=== PATIENT | female | born 1950 | race Caucasian/White ===

== ENCOUNTER 2018-08-08 07:00 | Inpatient (IN) ==
--- NOTE | 2018-08-21 17:46 | MH ---
cc: Reagan Main MD DATE OF ADMISSION: 08/22/2018 She is scheduled to be admitted to the hospital on 08/22/2018. ADMITTING DIAGNOSIS: Osteoarthritis, left shoulder. HISTORY OF PRESENT ILLNESS: The patient is a 67-year-old white female who has experienced a 2-1/2 year history of pain involving her left shoulder area. She had noted the gradual onset of discomfort unrelated to injury or unusual activity. She had undergone previous evaluation with her primary care physician who recommended that she conform to exercise activities during which time, the patient remained symptomatic with limited mobility about her shoulder and then thereafter initiated a course of massage therapy that did not afford her any appreciable benefit. She was taking ibuprofen with limited benefit and relief of her pain and subsequently presented to the office in 05/2017. At that time, her x-ray studies revealed obvious degenerative changes of her glenohumeral joint with hypertrophic bony reaction along the inferior margins of the humeral head and glenoid with preservation of the subacromial space. Findings and treatment options were reviewed. At that time, the patient elected to continue with conservative management and thereafter being followed on an outpatient basis. She returned to the office in September of this past year reporting that she was becoming progressively more symptomatic with pain with limited mobility that had begun to influence all activities of daily living. She has been taking ibuprofen 800 mg routinely for pain management. At that time, it was recommended that she proceed with a CT scan evaluation, the results of which identified mild to moderate acromioclavicular and moderate glenohumeral joint osteoarthritis with synovial debris within the glenohumeral joint. There was a 17 x 16 mm 30 % partial thickness articular surface tear of the supraspinatus tendon. The patient returned to the office in followup disposition and at that time, the findings of the CT scan were reviewed and treatment options discussed. The pros and cons of continuing with conservative management versus operative intervention that would involve reverse shoulder arthroplasty were outlined in detail. Emphasis was made regarding the fact that the decision to proceed with surgery would be left entirely to the patient's discretion. The patient considered her options in this regard and subsequently returned to the office in followup disposition, expressing her desire to proceed accordingly and in compliance with her wishes, she is currently being admitted in order that the above be accomplished. PAST MEDICAL HISTORY, HOSPITALIZATIONS AND SURGERIES: Right total knee arthroplasty, colonoscopy, correction of a deviated nasal septum, vein stripping of the right leg, bladder suspension, excision of vaginal cyst and partial right upper lobectomy for history of cancer followed by a course of chemotherapy. The patient's medical illnesses include a history of hypertension. The patient was recently evaluated for sleep apnea. MEDICATIONS: She is currently takin. Sertraline 50 mg daily. 2. She also takes vitamin C, B complex. 3. Calcium. 4. Turmeric. 5. Biotin. 6. Multivitamin tablet. 7. Recently started probiotic. ALLERGIES: SHE DENIES ANY KNOWN DRUG ALLERGIES. REVIEW OF SYSTEMS: She wears glasses, has occasional headaches as related to neck discomfort. No seizure or syncope. No sinus congestion or epistaxis. Auditory acuity slightly diminished. No tinnitus. No bleeding gums or dysphagia. No cough, pneumonia, or tuberculosis. No angina or heart disease, medically managed for hypertension. Appetite good. Bowel movements regular. No hepatitis, gallbladder disease or ulcers. She has had a history of hemorrhoids. No urinary tract infection, no kidney stones. No fractures. No psychiatric illness. Remaining review of systems is unremarkable and noncontributory. FAMILY HISTORY: 47 years, is 71 years of age in reasonably good health, 1 son and 1 daughter described as being in good health. FAMILY HISTORY: Positive for heart disease, liposarcoma, diabetes and COPD. SOCIAL HISTORY: The patient is employed as a computer analyst supervisor. She completed 2 years of college education. Denies active use of tobacco. Ethanol consumption in the form of several beers on a daily basis. PHYSICAL EXAMINATION: VITAL SIGNS: Height 5 feet 3 inches, weight 206 pounds. GENERAL: An alert, oriented, and responsive 67-year-old white female who sits quietly upon the examination table with no apparent distress. HEAD, EARS, EYES, NOSE AND THROAT: Pupils are equal, round and reactive to light. Extraocular movements full. Sclerae are clear. External nares clear. External auditory canals clear. Semi edentulous in the mandibular distribution. Mucous membranes pink and moist. Pharynx clear. NECK: Supple. Active mobility with slight guarding at the extremes of motion indicated to be chronic in nature. Carotid pulse is palpable bilaterally. Trachea midline. Thyroid without thyroid enlargement. LUNGS: Clear to auscultation and percussion. No CVA tenderness. No discomfort throughout the dorsal lumbar spine. HEART: Regular rate and rhythm. No murmur or gallop. ABDOMEN: Soft, nontender, bowel sounds present. PELVIC: Per primary care physician. EXTREMITIES: Left shoulder: No localizing tenderness about the shoulder area. There is restricted mobility of the shoulder joint in all ranges assessed with the patient unable to actively elevate her hand in a full overhead orientation. Internal rotation is limited to the lateral waist level. Cross arm positioning of the left hand to right shoulder is limited with pain associated. There is obvious crepitation elicited about the glenohumeral joint. Drop arm test is negative. Lauren sign is positive. Mild weakness of internal and external rotation. [employer] Worker strength intact. Sensory intact. NEUROLOGIC: Cranial nerves 2-12 grossly intact. IMPRESSION: Osteoarthritis, left shoulder. PLAN: Left reverse shoulder arthroplasty. The nature of the planned surgical procedure, the potential complications and risks associated, the expectations of surgery and the consent form have been thoroughly reviewed with the patient in the presence of her prior to admission to the hospital. Calista has indicated her full understanding regarding all of the above and given consent to proceed with treatment as outlined. Medical evaluation and clearance for surgery completed by her primary care physician, Dr. Lema. Reagan Main MD NBS/ct , 04:42 PM , 04:57 PM
[2018-08-22] MEDS ORDERED: ceFAZolin 2 GM Premix Inj 2 GM/50 ML PIGGYBACK IV.SIG ONE (07:58)
[2018-08-22] MEDS ORDERED: SODIUM CHLOR 0.9% IV.SIG SCH ×2 (08:00→11:00)
[2018-08-22] MEDS ORDERED: ceFAZolin 2 GM Premix Inj 2 GM/50 ML PIGGYBACK IV.SIG SCH (08:00)
[2018-08-22] MEDS ORDERED: TRANEXAMIC ACID IV.SIG SCH ×2 (08:00→11:00)
[2018-08-22] MEDS ORDERED: Ropivacaine 0.5% PF Inj 20 ML Vial ONE (08:05)
[2018-08-22] MEDS ORDERED: Metoprolol Tartrate 25 MG Tablet PO ONE (08:15)
[2018-08-22] MEDS ORDERED: Chlorhexidine Gluconate 2% 1 Pack (2 Cloths) TOPICAL ONE (08:15)
[2018-08-22] MEDS ORDERED: Sodium Chlor 0.9% Inj 500 ML IV.CONT ONE (08:15)
[2018-08-22] MEDS ORDERED: Bisacodyl 10 MG Supp RECTAL PRN (11:48)
[2018-08-22] MEDS ORDERED: Morphine Inj 4 MG/ML Vial IV.PUSH PRN (11:48)
[2018-08-22] MEDS ORDERED: Post-op Orders (for Pharmacy) OTHER STA (11:48)
[2018-08-22] MEDS ORDERED: Naloxone Inj 0.4 MG/ML Vial IV.PUSH PRN (11:48)
[2018-08-22] MEDS ORDERED: Zolpidem Tartrate 5 MG Tablet PO PRN (11:48)
[2018-08-22] MEDS ORDERED: Acetaminophen 325 MG Tablet PO PRN (11:48)
[2018-08-22] MEDS ORDERED: Morphine Inj 30 MG/30 ML PCA.VIAL PCA PRN (11:48)
[2018-08-22] MEDS ORDERED: Aluminum/Magnesium/Simethacone Susp 30 ML UDC PO PRN (11:48)
[2018-08-22] MEDS ORDERED: Tranexamic Acid Inj 1,000 MG in Sodium Chlor 0.9% Inj 100 ML IV.SIG ONE (11:48)
--- NOTE | 2018-08-22 11:52 | P.DCO ---
- Diagnosis (1) Degenerative joint disease, shoulder, left Status: Acute - Physical Therapy Order: Evaluate and treat, Improve ambulation, Strength and gait training - Occupational Therapy Order: Evaluate and treat, Improve ADL, Gross motor coordination, Fine motor coordination - Home Health Nursing Order: Wound care and dressing changes, Nursing assessment with vital signs - Home Health Aide Order: To assist in: Bathing and personal care, assistant speech language pathologist and meal prep - Hearing Therapy Teacher Order: To evaluate: Living conditions/environment, Support services Order: To provide: Long range planning, Community services - Case Management Consult Case Management Consult-Home Health: Yes - Certification I have seen patient Calista Parham on 08/22/18. My clinical findings support the need for the requested home health care services because: Limited ability to care for self, High risk of falls I certify that my clinical findings support that this patient is homebound because: Post-op weakness, Unsteady gait/balance, Unsafe to leave home unassisted (1) Degenerative joint disease, shoulder, left Qualifiers: Osteoarthritis type: primary Qualified Code(s): M19.012 - Primary osteoarthritis, left shoulder
[2018-08-22] MEDS ORDERED: Morphine Inj 30 MG/30 ML PCA.VIAL PCA ONE (12:00)
[2018-08-22] MEDS ORDERED: fentaNYL Citrate Inj 100 MCG/2 ML Ampul ONE (12:08)
--- NOTE | 2018-08-22 12:31 | MP ---
cc: Reagan Main MD DATE OF OPERATION: 08/22/2018 PREOPERATIVE DIAGNOSIS: Osteoarthritis, left shoulder. POSTOPERATIVE DIAGNOSIS: Osteoarthritis, left shoulder. PROCEDURE PERFORMED: Reverse shoulder arthroplasty, left shoulder. SURGEON: Reagan Main MD ANESTHESIA: General endotracheal. INDICATIONS: This is a 67-year-old white female with a 2-1/2 year history of left shoulder pain of gradual onset unrelated to injury or unusual activity. She had undergone initial evaluation with her primary care physician, at which time she was prescribed an exercise program; unfortunately remained symptomatic with limited mobility about the shoulder area and later initiated massage therapy as part of her treatment. She was taking ibuprofen with minimal benefit and later underwent orthopedic evaluation in 05/2017. At that time, x-ray studies revealed obvious degenerative changes about the glenohumeral joint for which findings and treatment options were reviewed. The patient elected to continue with conservative management while being followed on an outpatient basis. She returned to the office in September of this past year reporting that she was becoming progressively more symptomatic with pain and limited mobility that was influencing all activities of daily living. She had been taking ibuprofen 800 mg for pain management. She subsequently underwent a CT scan evaluation, the results of which identified mild to moderate acromioclavicular and moderate glenohumeral joint osteoarthritis with synovial debris within the glenohumeral joint, a 17 x 16 mm 30% partial thickness articular surface tear of the supraspinatus tendon. The patient returned to the office in followup disposition at which time the findings of the scan were reviewed and treatment options discussed. The pros and cons of continuing with conservative management versus operative intervention that would involve a reverse shoulder arthroplasty were outlined in detail. Emphasis was made regarding the fact that the decision to proceed with surgery would be left entirely to the patient's discretion. The patient felt that her symptoms have progressed to that point in time where she was ready to proceed accordingly and in compliance with her wishes, she was scheduled for admission at this time in order that the above be accomplished. FORMAT: Following the induction of satisfactory general anesthesia by endotracheal intubation as completed per the department of anesthesia, the patient was positioned on the operating table in a modified beach chair configuration. The left shoulder and upper extremity proper were isolated with a U-drape, thereafter being prepped with Betadine solution and draped into a sterile field in the routine manner. Prior to initiation of the actual procedure, the standard timeout protocol was completed. All parameters were appropriately addressed and confirmed by operating room personnel. A standard anterior approach to the shoulder was initiated overlying the deltopectoral interval being extended from the inferior margin of the clavicle to the axillary crease. The incision was developed through underlying subcutaneous tissue with hemostasis maintained by electrocautery. By deepening dissection, the deltopectoral interval was developed. The cephalic vein was identified distally and as the wound was progressively dissected, the vein was retracted laterally with a cuff of deltoid tissue. Retractors were placed. Digital release of subdeltoid adhesions was accomplished. The anterior circumflex vessels were identified, clamped, and coagulated. The biceps tendon was tenodesed in a limited fashion to the stump of the pectoralis insertion and thereafter, the subscapularis tendon was divided along the anatomical neck of the humerus, the medial segment of which was tagged with #1 Ti-Cron suture. The humeral head was delivered into the wound at which time of examination revealed severe degenerative changes with complete erosion of articular cartilage and underlying subchondral bone exposed. An entry point was initiated superiorly adjacent to the bicipital groove facilitating entry into the humeral canal. Sequential rasping was accomplished from 6 through 10 mm. Thereafter, the external guide was positioned and with the guide maintained in approximately 30 degrees of retroversion, the humeral head was resected. Broaching was thereafter accomplished through 10 mm, the trial humeral stem being left in place. The covering cap was positioned and attention was redirected to the glenoid. Retractors were placed appropriately to facilitate exposure. The stump of the biceps tendon was resected. The glenoid labrum and a segment of the middle and inferior glenohumeral ligament were resected with the Bovie on cutting current, facilitating exposure of the glenoid surface in a 360-degree orientation. Hash dunham were placed from the 12 o'clock to 6 o'clock position and the 3 o'clock to 9 o'clock position, facilitating orientation of the central portion of the glenoid. A guide pin was placed in approximately 10 degrees of inferior tilt utilizing the glenoid guide and with the pin in place, the stepdown reamer was passed, creating a central peg hole. Thereafter, a 25 mm Glenosphere mini baseplate was firmly seated. A 35 mm central screw was positioned and 25 mm locking screws superiorly and inferiorly and 15 mm screws anteriorly and posteriorly. With the baseplate firmly seated, a 36 mm Glenosphere with maximum inferior offset was affixed to the baseplate and attention returned to the proximal humerus. With the 10 humeral trial stem in place, a trial reduction followed, utilizing a 36 x 44 mm bearing insert. The shoulder was reduced and carried through a passive range of motion, stability being demonstrated throughout the arc of mobility. An open dislocation was completed. The trial humeral components being removed, the wound was copiously irrigated with antibiotic saline solution and thereafter a size 10 mini humeral stem was firmly seated to which a 44 mm humeral tray with 36 x 44 mm humeral bearing insert attached and affixed to the stem. The shoulder was again reduced and repeat range of motion again noted stability as previously described. Final irrigation was accomplished with hemostasis maintained. The subscapularis tendon was repaired with #1 Ti-Cron suture. The deltopectoral interval was reapproximated with a running 0 Vicryl suture. The remaining portion of the wound was closed in layers in the routine manner, skin margins being reapproximated with a running subcuticular 3-0 Vicryl suture over which Steri-Strips were applied. Xeroform gauze and a bulky dry sterile dressing were placed. The extremity being supported in an arm sling, anesthesia was discontinued. The patient was thereafter transferred to a hospital bed and returned to the recovery room in satisfactory condition, having tolerated her operative procedure well. Estimated blood loss was approximately 100 mL as determined per anesthesia. All implants were of the Biomet painter supervisor. Reagan Main MD NBS/ct , 11:37 AM , 11:51 AM
--- NOTE | 2018-08-22 14:45 | XR ---
EXAM DATE: 08/22/2018 12:59 PM EST AGE/SEX: 67 years / Female INDICATIONS: Post op left shoulder. CLINICAL DATA: This is the patient's initial encounter. Patient reports that signs and symptoms have been present for 1 day and indicates a pain score of Nonresponsive. MEDICAL/SURGICAL HISTORY: None. None. COMPARISON: No prior exams available for comparison. FINDINGS: Patient is status post a total shoulder arthroplasty. CONCLUSION: [ Status post left shoulder arthroplasty. Anatomic alignment ] Electronically signed by: Praful Cota MD Board Certified Radiologist 08/22/2018 2:43 PM EST
--- NOTE | 2018-08-22 15:04 | P.CON ---
[facility] of Present Illness [facility]: 08[facility]22[facility]18 Requesting Physician: Reagan Main Reason for Consult: Routine postop medical management. Primary Care Provider: Yoel Messer MD Chief Complaint: Routine postop medical consult History of Present Illness: Patient is a very pleasant 67-year-old female right-handed with history of hypertension, obstructive sleep apnea who has been having pain of the left shoulder on and off for 2 years now. Patient underwent conservative management with physical therapy and PRN pain meds. However states for the last 2 months "cannot live with the pain" is along with this with increased limitation in range of motion finally was admitted today and underwent left shoulder surgery by Dr. Drummond. [facility]. PMH: hypertension, obstructive sleep apnea, post menopausal depression. Medications: multivitamins and sertraline 50 mg daily. Social history : history of smoking quit 13 years ago occasional beer Past major surgical history : right knee surgery 7 years ago, right upper lobectomy secondary to cancer 6 years ago. Primary care physician is Dr. Messer [facility] - History History Provided By: Patient - Medical History Medical History: Medical History (Last Reviewed 08/22/18 @ 07:42 by Mara Wiggins) Arthritis CPAP (continuous positive airway pressure) dependence History of lung cancer Hx of acute bronchitis Sleep apnea Wears glasses - Surgical History Surgical History: Surgical History (Last Reviewed 08/22/18 @ 07:43 by Mara Wiggins) H/O vein stripping History of lobectomy of lung History of suburethral sling procedure History of total right knee replacement (TKR) - Tobacco History Second Hand Smoke Exposure: No Tobacco Use In Past 30 Days: No Smoking Status: Former smoker - Alcohol History How Often Do You Have a Drink Containing Alcohol: 2 to 3 times a week - Substance Use History Substance History: No History of Abuse - Travel History Recent Travel in the [place] Within the Last 8 Weeks: No Recent Travel Out of the Country Within the Last 8 Weeks: No Medications and Allergies Active Medications: Active Medications Acetaminophen (Tylenol) 650 mg PO Q6H PRN PRN Reason: FEVER > 102 F Hydrocodone Bitart/Acetaminophen (Kaiser 5/325) 1 tab PO Q4H PRN PRN Reason: PAIN LESS THAN 5 ON SCALE Hydrocodone Bitart/Acetaminophen (Kaiser 5/325) 2 tab PO Q6H PRN PRN Reason: PAIN SCALE 5 TO 10 Al Hydrox/Mg Hydrox/Simethicone (Mag-Al Plus Susp Liq) 30 ml PO Q6H PRN PRN Reason: INDIGESTION Al Hydroxide/Mg Hydroxide (Milk Of Magnesia Liq) 30 ml PO BID PRN PRN Reason: Mild Constipation Aspirin (Aspirin) 325 mg PO BID [facility] Bisacodyl (Dulcolax Supp) 10 mg RECTAL DAILY PRN PRN Reason: SEVERE CONSITIPATION Calcium Carbonate (Tums Chew) 500 mg PO DAILY [facility] Sodium Chloride (Ns Inj) 500 mls @ 30 mls/hr IV.CONT .[id number] ONE Stop: 08/23/18 00:54 Lactated Ringer's (Lr 1000 Ml Inj) 1,000 mls @ 80 mls/hr IV.CONT .[id number] [facility] Last Admin: 08/22/18 12:00 Dose: 80 mls/hr Morphine Sulfate (Morphine Inj) 30 mg in 30 mls @ 0 mls/hr [employer]TER[employer] WORKROOM CLERK UNSCH PRN PRN Reason: prn pain Cefazolin Sodium 1 gm/ Sodium (Chloride) 100 mls @ 100 mls/hr IV.SIG Q6H [facility] Stop: 08/23/18 03:59 Lactulose (Lactulose Liq) 30 ml PO DAILY PRN PRN Reason: SEVERE CONSITIPATION Miscellaneous Information (Misc Nursing Information) 0 each OTHER UNSCH PRN PRN Reason: SEE DOSE INSTRUCTIONS Miscellaneous Information (Misc Nursing Information) 0 each OTHER UNSCH PRN PRN Reason: SEE LABEL COMMENTS Stop: 08/23/18 11:46 Morphine Sulfate (Morphine Inj) 2 mg IV.PUSH Q3H PRN PRN Reason: BREAKTHROUGH PAIN Multivitamins (Theragran) 1 tab PO DAILY [facility] Naloxone HCl (Narcan Inj) 0.4 mg IV.PUSH PRN PRN PRN Reason: Resp rate < 10 Ondansetron HCl (Zofran Inj) 4 mg IV.PUSH Q6H PRN PRN Reason: NAUSEA OR VOMITING Povidone Iodine (Betadine 7.5% Scrub) 1 applicatio TOPICAL ONCE [facility] Stop: 08/26/18 07:59 Senna/Docusate Sodium (Narda-Colace) 1 tab PO BID [facility] Sennosides (Senokot) 17.2 mg PO BID PRN PRN Reason: Moderate Constipation Sertraline HCl (Zoloft) 50 mg PO DAILY [facility] Sodium Chloride (Ns Flush) 2 ml IV.FLUSH BID [facility] Sodium Chloride (Ns Flush) 2 ml IV.FLUSH PRN PRN PRN Reason: FLUSH AFTER USING IV ACCESS Vitamin B Complex/Vitamin C (Allbee C) 1 tab PO DAILY [facility] Zolpidem Tartrate (Ambien) 5 mg PO HS PRN PRN Reason: INSOMNIA Allergies Allergy/AdvReac Type Severity Reaction Status Date / Time No Known Allergies Allergy Verified 08/22/18 07:43 Home Medications Medication Instructions Recorded Confirmed Type ascorbic acid (vitamin C) [Vitamin 1,000 mg PO DAILY 07/23/18 08/22/18 History C] biotin 5 mg PO DAILY 07/23/18 08/22/18 History calcium carbonate [Calcium 600] 1,200 mg PO DAILY 07/23/18 08/22/18 History ibuprofen 600 mg PO TID PRN 07/23/18 08/22/18 History magnesium 30 mg PO HS 07/23/18 08/22/18 History multivitamin [Multiple Vitamins] 1 tab PO DAILY 07/23/18 07/23/18 History sertraline 50 mg PO DAILY 07/23/18 08/22/18 History turmeric root extract 1 tab PO DAILY 07/23/18 08/22/18 History vitamin B complex [B-Complex] 1 tab PO DAILY 07/23/18 08/22/18 History Physical Exam Vital signs: Vital Signs 08/22/18 07:48 08/22/18 08:03 08/22/18 11:43 Temperature 98.1 F Pulse Rate 59 L 59 L 94 H Respiratory Rate 16 16 Blood Pressure 176/86 H 143/60 H Pulse Oximetry 100 100 98 08/22/18 11:45 08/22/18 12:00 08/22/18 12:15 Temperature Pulse Rate 87 77 74 Respiratory Rate 16 16 17 Blood Pressure 160/70 H 145/65 H 141/67 H Pulse Oximetry 96 98 97 08/22/18 12:30 08/22/18 12:48 Temperature Pulse Rate 75 77 Respiratory Rate 17 17 Blood Pressure 117/59 L 129/61 Pulse Oximetry 97 97 Intake & Output 08/21/18 08/22/1808/22/19 18:59 06:59 18:59 Intake Total 1200.42 / 1200.42 Output Total 100 / 100 Balance 1100.42 / 1100.42 Weight 94.2 kg Intake: IV 159.42 / 159.42 Cyklokapron Inj 942 MG In NS 109.42 / 109.42 Inj 100 ML @ 200 mls/hr IV.SIG SPOOL SORTER [facility] Rx#:[id number] Ancef 2 GM Premix Inj 2 gm In 50 / 50 50 ml @ 100 mls/hr IV.SIG SPOOL SORTER DORA Rx#:[id number] Anesthesia Amount 1041 / 1041 Output: Estimated Blood Loss 100 / 100 Other: Weight On Admission 94.2 kg Narrative: Awake alert no acute distress vital signs stable Anicteric sclerae Neck supple no nuchal rigidity Lungs no rales no wheezes Regular rhythm Abdomen is soft flabby nontender with good bowel sounds Extremities. Left upper extremity shoulder in postop dressing and ice packing good radial pulses No lower extremity edema, + varicose veins, good peripheral pulses Results - Imaging Impressions Shoulder X-Ray 08/22/18 00:00 CONCLUSION: [ Status post left shoulder arthroplasty. Anatomic alignment ] Assessment and Plan - Plan 66-year-old female presenting with chronic left shoulder pain Status post left reverse shoulder arthroplasty Orthopedic surgery following PRN pain meds PT OT consult History of postmenopausal depression continue on sertraline 50 mg daily History of obstructive sleep apnea. Asked patient to bring in his CPAP Patient encouraged to increase early ambulation Incentive spirometry hourly. Thank you for this consult will follow patient in-house with you.
[2018-08-22] MEDS: ceFAZolin Inj 1 GM in Sodium Chlor 0.9% Inj 100 ML IV.SIG SCH ×2 (15:06→20:20)
[2018-08-22] MEDS ORDERED: ceFAZolin 1 GM Premix Inj 1 GM/50 ML PIGGYBACK IV.SIG ONE (15:06)
[2018-08-22] MEDS: Senna/Docusate Sodium 8.6/50 MG Tablet PO SCH (20:20)
[2018-08-22] MEDS ORDERED: MAGNESIUM 30 MG PO SCH (21:00)
[2018-08-23] MEDS: ceFAZolin Inj 1 GM in Sodium Chlor 0.9% Inj 100 ML IV.SIG SCH (03:28)
--- NOTE | 2018-08-23 07:30 | MD ---
cc: Reagan Main MD, Dr. DATE OF DISCHARGE: 08/23/2018 ADMITTING DIAGNOSIS: Osteoarthritis left shoulder. DISCHARGE DIAGNOSIS: Osteoarthritis left shoulder. HISTORY: A 67-year-old white female with a 2-1/2 year history of progressive left shoulder pain unrelated to injury, unusual onset. She had undergone previous evaluation with her primary care physician who recommended an exercise program while the patient remained symptomatic with pain about the shoulder area. She later initiated massage therapy that also did not prove to be of any significant benefit. She had been taking ibuprofen on a regular basis without relief of her pain being noted. She presented to the undersigned physician in May 2017 and at that time, her x-ray studies revealed obvious degenerative changes of the glenohumeral joint with hypertrophic bony reaction along the inferior margin of the humeral head. There was some preservation of the subacromial space. Findings and treatment options were reviewed. At that time, the patient elected to continue with conservative management while being followed on an outpatient basis, she was continuing to take ibuprofen 800 mg routinely. A subsequent CT scan was completed, the results of which identified mild to moderate acromioclavicular and moderate glenohumeral joint osteoarthritis with synovial debris within the glenohumeral joint, a 17 x 16 mm 30% partial thickness articular surface tear of the supraspinatus tendon. These findings were reviewed and treatment options discussed. The pros and cons of continued conservative management versus operative intervention involving a reverse shoulder arthroplasty were outlined in detail. Emphasis was made regarding the fact that the decision to proceed with surgery would be left entirely to the patient's discretion. The patient felt that her symptoms had indeed progressed to that point in time where she was ready to proceed accordingly and in compliance with her wishes, she was scheduled for admission in order that the above be accomplished. PHYSICAL EXAMINATION: Her physical examination at the time of admission revealed no localizing tenderness about the left shoulder. There was restricted mobility of the shoulder joint in all ranges assessed with the patient unable to actively elevate her hand in an overhead orientation. Internal rotation was limited to the lateral waist level. Cross arm positioning of the left hand to right shoulder limited with pain. There was obvious crepitation elicited about the glenohumeral joint. Drop-arm test negative. Lauren sign positive. Mild weakness of internal and external rotation. Organ Pipe Voicer strength intact. Sensory intact. HOSPITAL COURSE: Prior to admission to the hospital, the patient had undergone medical evaluation and clearance for surgery as completed by her primary care physician, Dr. Lema. She was taken to the operating room 08/22/2018 and on that date underwent a left reverse shoulder arthroplasty completed in an uncomplicated manner. The patient was noted to have tolerated her operative procedure well. Her postoperative course stable thereafter. She was allowed progressive mobilization with limitations basically involving external rotation not to exceed 45 degrees. environmental services associate was consulted to assist with discharge planning. Followup examination of her surgical wound noted to be intact, healing favorably with no evidence of infection. Medical followup per the hospitalist service. DVT prophylaxis initiated. The patient indicated her desire to be discharged home and continue her rehabilitation on outpatient basis. Plans were finalized in this regard and pending medical clearance, she was scheduled for discharge on the first postoperative day, at which time she was noted to be in a stable condition. She was scheduled to be seen in office followup in approximately 4 weeks. PROGNOSIS: Favorable. DISCHARGE MEDICATIONS: 1. Hydrocodone 5/325, #30. 2. Aspirin 325 mg 1 tab twice daily for 3 weeks, #40. MD DANNY Lopez/phyllis/hi , 06:52 AM , 07:01 AM
--- NOTE | 2018-08-23 08:26 | P.PN ---
Subjective Interval history: up in chair having breakfast pain controlled "ready to go home" Physical Exam Vital signs: Vital Signs 08/22/18 11:43 08/22/18 11:45 08/22/18 12:00 Temperature 98.1 F Pulse Rate 94 H 87 77 Respiratory Rate 16 16 16 Blood Pressure 143/60 H 160/70 H 145/65 H Pulse Oximetry 98 96 98 08/22/18 12:15 08/22/18 12:30 08/22/18 12:48 Temperature Pulse Rate 74 75 77 Respiratory Rate 17 17 17 Blood Pressure 141/67 H 117/59 L 129/61 Pulse Oximetry 97 97 97 08/22/18 13:00 08/22/18 13:15 08/22/18 13:30 Temperature Pulse Rate 81 77 78 Respiratory Rate 17 17 18 Blood Pressure 125/65 123/62 130/62 Pulse Oximetry 97 97 98 08/22/18 13:35 08/22/18 14:00 08/22/18 15:00 Temperature Pulse Rate 75 Respiratory Rate 18 Blood Pressure 135/63 Pulse Oximetry 96 97 92 L 08/22/18 15:30 08/22/18 15:32 08/22/18 21:40 Temperature 98.2 F Pulse Rate 80 74 Respiratory Rate 18 18 Blood Pressure 119/58 L 128/60 Pulse Oximetry 92 L 97 94 L Intake & Output 08/22/18 08/23/18 08/23/18 18:59 06:59 18:59 Intake Total 2500.42 / 2500.42 1650 / 1650 Output Total 200 / 200 Balance 2300.42 / 2300.42 1650 / 1650 Weight 94.2 kg 94.2 kg Intake: IV 1259.42 / 1259.42 1200 / 1200 LR 1000 mL Inj 1,000 ML @ 80 1000 / 1000 1000 / 1000 mls/hr IV.CONT .[id number] [facility]ORA Rx# :[id number] Cyklokapron Inj 942 MG In NS 109.42 / 109.42 Inj 100 ML @ 200 mls/hr IV.SIG [employer] [facility]A Rx#:[id number] Ancef 2 GM Premix Inj 2 gm In 50 / 50 50 ml @ 100 mls/hr IV.SIG [employer] [facility]ORA Rx#:[id number] Ancef Inj 1 GM In NS Inj 100 ML 100 / 100 200 / 200 @ 100 mls/hr IV.SIG Q6H [facility] Rx #:[id number] Oral 450 / 450 Anesthesia Amount 1241 / 1241 Output: Estimated Blood Loss 200 / 200 Other: # Voids 1 # Bowel Movements 0 Weight On Admission 94.2 kg Narrative: Awake alert no acute distress Anicteric sclerae Neck supple no nuchal rigidity Lungs no rales no wheezes Regular rhythm Abdomen is soft flabby nontender with good bowel sounds Extremities. Left upper extremity S/S in place good radial pulses No lower extremity edema, + varicose veins, good peripheral pulses Results - Imaging Impressions Shoulder X-Ray 08/22/18 00:00 CONCLUSION: [ Status post left shoulder arthroplasty. Anatomic alignment ] Assessment and Plan - Plan 66-year-old female presenting with chronic left shoulder pain Status post left reverse shoulder arthroplasty 08/22 Orthopedic surgery following PRN pain meds PT OT c History of postmenopausal depression continue on sertraline 50 mg daily History of obstructive sleep apnea. home CPAP for DC today per orthopedics OP ff up with PCP Incentive spirometry hourly.
[2018-08-23] MEDS ORDERED: TURMERIC ROOT EXTRACT PO SCH (09:00)
[2018-08-23] MEDS ORDERED: Aspirin 325 MG Tablet PO SCH (09:00)
[2018-08-23] MEDS ORDERED: Sertraline 50 MG Tablet PO SCH (09:00)
[2018-08-23] MEDS ORDERED: Vitamin B Complex/Vitamin C Tablet PO SCH (09:00)
[2018-08-23] MEDS ORDERED: ASCORBIC ACID 1000 MG PO SCH (09:00)
[2018-08-23 09:02] VITALS: RESP 17
[2018-08-23] MEDS: Senna/Docusate Sodium 8.6/50 MG Tablet PO SCH (10:40)
[2018-08-23 12:18] VITALS: BP 145/80; PULSE 69; TEMP 97.6; O2SAT 98
== END 2018-08-23 14:15 | DRG 483 ==
LOC: HSDI 08-22 07:10 → N06 08-22 15:45
PROVIDERS: ADMIT Orthopaedic Surgery; ATTEND Orthopaedic Surgery
CPT/HCPCS: 73020; 88305; 88311; 94150; 97116; 97163; 97166; C1776; J0131; J0690; J1580; J2250; J2270; J2795; J3010; J7120